=== PATIENT | female | born 1955 | race Caucasian/White ===

== ENCOUNTER → 2024-02-18 11:13 | Outpatient (REF) | payer OTHER, SELFPAY | LOC: WDC 11:13 | PROVIDERS: ATTENDING PHYSICIAN Obstetrics & Gynecology; FAMILY PHYSICIAN Family Medicine | DX: Z12.31 Encounter for screening mammogram for malignant neoplasm of breast (principal) | CPT/HCPCS: 77063; 77067 ==

== ENCOUNTER → 2024-02-25 08:35 | Outpatient (REF) | payer OTHER, SELFPAY | LOC: WDC 08:35 | PROVIDERS: ATTENDING PHYSICIAN Obstetrics & Gynecology; FAMILY PHYSICIAN Family Medicine | DX: R92.8 Other abnormal and inconclusive findings on diagnostic imaging of breast (principal) | CPT/HCPCS: 77065 ==

== ENCOUNTER → 2024-03-01 07:20 | Outpatient (REF) | payer OTHER, SELFPAY ==
--- NOTE | 2024-03-01 09:12 | OID.BR.INTR ---
[facility] Breast Navigator - Initial
- -
Date of Contact: 03/01/24
Met with patient. Patient given written information on navigator services available at [facility]. Will follow up as needed per protocol.
== END ==
LOC: WDC 07:20
PROVIDERS: ATTENDING PHYSICIAN Obstetrics & Gynecology
DX: R92.1 Mammographic calcification found on diagnostic imaging of breast (principal)
CPT/HCPCS: 88305; 19081; 76098; A4648

== ENCOUNTER → 2024-08-10 09:02 | Outpatient (REF) | payer OTHER, SELFPAY | LOC: RAD 09:02 | PROVIDERS: ATTENDING PHYSICIAN Obstetrics & Gynecology; FAMILY PHYSICIAN Family Medicine | DX: Z78.0 Asymptomatic menopausal state (principal) | CPT/HCPCS: 77080 ==

== ENCOUNTER → 2025-02-24 15:41 | Outpatient (REF) | payer OTHER, SELFPAY | LOC: WDC 15:41 | PROVIDERS: ATTENDING PHYSICIAN Obstetrics & Gynecology; FAMILY PHYSICIAN Family Medicine | DX: Z12.31 Encounter for screening mammogram for malignant neoplasm of breast (principal) | CPT/HCPCS: 77063; 77067 ==